=== PATIENT | female | born 1940 | race Caucasian/White ===

== ENCOUNTER → 2017-07-17 | Outpatient (CLI) | payer MEDICARE, OTHER ==
[~2017-07-17] MED LIST: ALEN70; ASCO1ER PO; ASPI81CH PO; ASPI81EC PO; CALCIUM PO; CRANBERRY TABS PO; ESTR25VT PV; HYDCHL25 PO; LAVAP17G PO; LISI5 PO; METH1TAB8; MULVITA PO; OMEGA FISH OIL PO; RESVERATROL PO; VAGIFEM10 MCG; VESICARE PO; VITAMIN D3 PO; Vitamin C100 M1 PO
== END | disposition home or self-care (01) ==
LOC: LAB SHORT 08:08 → PLD 08:08
DX: L82.1 Other seborrheic keratosis (principal)
CPT/HCPCS: 88305

== ENCOUNTER → 2018-07-18 | Outpatient (CLI) | payer MEDICARE, OTHER | END | disposition home or self-care (01) | LOC: LAB EV 12:45 → LAB SHORT 12:45 | DX: J02.9 Acute pharyngitis, unspecified (principal) | CPT/HCPCS: 87070 ==

== ENCOUNTER → 2018-07-28 | Outpatient (CLI) | payer MEDICARE, OTHER | END | disposition home or self-care (01) | LOC: LAB SHORT 12:40 → LAB EV 12:40 | DX: R31.9 Hematuria, unspecified (principal) | CPT/HCPCS: 87077; 87086; 87186 ==

== ENCOUNTER → 2018-11-19 | Outpatient (CLI) | payer MEDICARE, OTHER ==
[2018-11-19 19:36] LABS: Source, Urine Catheter
[2018-11-19 19:48] LABS: Bilirubin, Urine Neg (Neg); Blood, Urine 2+ (Neg); Glucose Qualitative, Urine Neg (Neg); Ketones, Urine Neg (Neg); Leukocyte Esterase, Urine 3+ (Neg); Nitrite, Urine Neg (Neg); Protein, Urine 1+ (Neg); Urobilinogen, Urine NORM (Normal)
[2018-11-19 20:12] LABS: Appearance, Urine Cloudy (Clear); Color, Urine Yellow (P-Yellow)
[2018-11-19 20:13] LABS: Bacteria Many /hpf; Red Blood Cells, Urine 0-2 /hpf (0-2); Squamous Epithelial Cells Not Seen /hpf (Few); White Blood Cells, Urine TNTC /hpf (0-5)
== END | disposition home or self-care (01) ==
LOC: LAB 16:48 → LAB SHORT 16:48
PROVIDERS: Obstetrics & Gynecology Gynecology
DX: R30.0 Dysuria (principal)
CPT/HCPCS: 81001; 87086

== ENCOUNTER → 2019-05-08 | Outpatient (CLI) | payer MEDICARE, OTHER | END | disposition home or self-care (01) | LOC: LAB SHORT 10:39 → LAB EV 10:39 | DX: N39.0 Urinary tract infection, site not specified (principal) | CPT/HCPCS: 87077; 87086; 87186 ==

== ENCOUNTER → 2021-04-18 | Outpatient (CLI) | payer MEDICARE, OTHER | END | disposition home or self-care (01) | LOC: LAB 18:40 → LAB SHORT 18:40 | DX: N39.0 Urinary tract infection, site not specified (principal) | CPT/HCPCS: 87086 ==

== ENCOUNTER 2021-07-10 08:13 | Day surgery (SDC) | payer MEDICARE, BC ==
[~2021-07-10] VITALS: Ht 170.2 cm; Wt 72.4 kg
[2021-07-10] MEDS ORDERED: LOSA25 (08:30)
[2021-07-10] MEDS ORDERED: HYDCHL12.5 (08:30)
[2021-07-10] MEDS ORDERED: AMLO5 (08:30)
[2021-07-10] MEDS ORDERED: GLUC500 (08:31)
[2021-07-10] MEDS ORDERED: MULVITA (08:31)
[2021-07-10] MEDS ORDERED: ZEBUTAL 50-3251 EAC1 (08:31)
== END 2021-07-10 10:46 | disposition home or self-care (01) ==
LOC: ORSCSDS 08:13
PROVIDERS: Internal Medicine Gastroenterology
PROC: 0DBM8ZX Excision of Descending Colon, Via Natural or Artificial Opening Endoscopic, Diagnostic (ICD-10-PCS; principal; 2021-07-10 09:30)
PROC: 0DBK8ZX Excision of Ascending Colon, Via Natural or Artificial Opening Endoscopic, Diagnostic (ICD-10-PCS; principal; 2021-07-10 09:30)
DX: Z12.11 Encounter for screening for malignant neoplasm of colon (principal); Z86.010 Personal history of colon polyps; D12.4 Benign neoplasm of descending colon; D12.2 Benign neoplasm of ascending colon; K57.30 Diverticulosis of large intestine without perforation or abscess without bleeding; K64.8 Other hemorrhoids; I10 Essential (primary) hypertension; Z79.899 Other long term (current) drug therapy
CPT/HCPCS: 88305; J2704; J7120

== ENCOUNTER 2022-02-12 08:24 | Day surgery (SDC) | payer MEDICARE, BC ==
[~2022-02-12] VITALS: Ht 170.2 cm; Wt 74.9 kg
[~2022-02-12 08:24] MED LIST changes: +ACIDOPHILUS1 EAC3 PO; +AMLO5 PO; +Acetaminophen650 M1 PO; +CELE100 PO; +D-MANNOSE PO; +FLAX PO; +GLUC500 PO; +HIPREX1 G1 PO; +HYDCHL12.5 PO; -LAVAP17G PO; +LOSA25 PO; +MELO7.5 PO; -METH1TAB8; +MIRALAX17 GM PO; +SODIUM HYALURONATE; -VAGIFEM10 MCG; +VAGIFEM10 MCG VAG; +ZEBUTAL 50-3251 EAC1
--- NOTE | 2022-02-12 10:09 | NUR ---
Ambulatory in Day Surgery WITH FAMILY. History, Chart, Medications and Allergies reviewed before start of procedure.Lungs clear T/O to Auscultation. Patient confirms NPO status and agrees with scheduled surgery. Pre-Op teaching done. Pt verbalizes understanding.
--- NOTE | 2022-02-12 15:00 | NUR ---
PT ARRIVED TO THE ROOM AT 1445. PT ALERT AND ORIENTED AT TIME OF ARRIVAL. SHE WAS ABLE TO WIGGLE HER TOES AND HAD RETURNING SENSATION TO BLE. AQUACELL DRESSING IN PLACE TO L KNEE, C/D/I. PT DENIES PAIN. WILL CONTINUE TO MONITOR.
--- NOTE | 2022-02-12 20:30 | NUR ---
SHIFT SUMMARY PT IS POD#1 FROM L TKA WITH DR. LEE. PAIN MANAGED WITH PO PAIN MEDICATION. PT HAS HAD SOME NAUSEA, MANAGED WITH REGLAN AND ZOFRAN. SHE WAS ABLE TO TOLERATE SOME DINNER. REPORT GIVEN TO ALLIE MURPHY.
--- NOTE | 2022-02-13 04:18 | NUR ---
POD1 FOR A LEFT TKA. DRESSING REMAINS C/D/I. SPINAL ANESTHESIA HAS WORN OFF, SENSATION AND CIRCULATION REMAINS IN TACT IN LLE. VSS. PT WAS NAUSEOUS AT THE BEGINNING OF SHIFT, MEDICATED PER EMAR. ONE EMESIS NOTED, PT STATED SHE FELT BETTER AFTERWARDS. TOLLERATED PO FLUID T/O THE NIGHT. DENIES PASSING GAS. VOIDING W/O DIFFICULTY. PT WAS ABLE TO AMBULATE TO THE BATHROOM WITH MINIMAL ASSISTANCE, GT BELT, AND WALKER FROM HOME. MEDICATED FOR PAIN WITH OXY, AND SCHEDULED MEDICATIONS. CRYO REMAINED IN PLACE T/O THE NIGHT. PT IS CURRENTLY RESTING, EATING JELLO. CALL LIGHT IN REACH
[2022-02-13 05:40] LABS: BASOPHILS ABSOLUTE AUTO 0.02 K/mm3 (0.00-0.23); BASOPHILS PERCENT AUTO 0 % (0-2); EOSINOPHILS PERCENT AUTO 0 % (0-6); Hemoglobin 10.2 g/dL (11.5-16.0); IMMATURE GRAN ABSOLUTE AUTO 0.03 K/mm3 (0.00-0.10); IMMATURE GRAN PERCENT AUTO 0 % (0-1); LYMPHOCYTES ABSOLUTE AUTO 0.73 K/mm3 (0.84-5.20); LYMPHOCYTES PERCENT AUTO 8 % (21-46); MONOCYTES ABSOLUTE AUTO 1.03 K/mm3 (0.16-1.47); MONOCYTES PERCENT AUTO 11 % (4-13); Mean Corpuscular HGB 32.3 pg (26.0-34.0); Mean Corpuscular Volume 95 fL (80-100); Mean Platelet Volume 10.1 fL (9.1-12.4); NEUTROPHILS ABSOLUTE AUTO 7.79 K/mm3 (1.96-9.15); NEUTROPHILS PERCENT AUTO 81 % (41-73); Platelet Count 177 K/mm3 (150-400); RDW Coefficient Variation 11.9 % (11.7-14.2); RDW Standard Deviation 41.4 fL (35.1-46.3); Red Blood Cell Count 3.16 M/mm3 (3.80-5.20)
[2022-02-13 06:04] LABS: Magnesium, Blood 1.8 mg/dL (1.6-2.4)
[2022-02-13 06:05] LABS: Bun/Creatinine Ratio 39.4 (12.0-20.0); Calcium, Blood 8.6 mg/dL (8.5-10.1); Creatinine, Blood 0.69 mg/dL (0.40-1.00); Potassium, Blood 3.8 mmol/L (3.5-5.5)
[2022-02-13] MEDS ORDERED: OXAYDO5 M3 PO (11:05)
--- NOTE | 2022-02-13 13:50 | NUR ---
DISCHARGE SUMMARY PT A&OX4, VSS/RA, BERT PO, VOIDING, AMB SBA FWW, IV DC'D. LEFT FLOOR VIA WC WITH FORESTRY PATROLMAN TO GO HOME WITH DAUGHTER WITH ALL PERSONAL POSSESSIONS INCLUDING DC PACKET, 2 AQUACEL DRESSINGS, NARC SCRIPT READY AT [facility](DAUGHTER TOOK YESTERDAY). DC INS PROVIDED. PT REP UNDERSTANDING THOSE INSTRUCTIONS INCLUDING DRESSING CHANGES, FU WITH SURGEON, OUTPT PT.
== END 2022-02-13 13:09 | disposition home or self-care (01) ==
LOC: ORSCMMR 08:24 → ORD 11:00 → ORSCMMR 11:00 → ORD 11:30 → SURS 14:37 → ORSCMMR 02-13 13:09
PROVIDERS: Orthopaedic Surgery
PROC: 0SRD0JA Replacement of Left Knee Joint with Synthetic Substitute, Uncemented, Open Approach (ICD-10-PCS; principal; 2022-02-12 11:00)
PROC: 8E0Y0CZ Robotic Assisted Procedure of Lower Extremity, Open Approach (ICD-10-PCS; principal; 2022-02-12 11:00)
DX: M17.12 Unilateral primary osteoarthritis, left knee (principal); I10 Essential (primary) hypertension; Z79.899 Other long term (current) drug therapy
CPT/HCPCS: 27447; 20985; S2900; 36415; 73560-LT; 80048; 83735; 85025; 97110; 97161; 97530; A9270; C1776; J0171; J0690; J0735; J1100; J1885; J2250; J2405; J2704; J2765; J2795; J3010; J7120

== ENCOUNTER → 2023-05-28 | Outpatient (CLI) | payer MEDICARE, BC ==
[~2023-05-28] MED LIST changes: +OXAYDO5 M3 PO
[2023-05-28 15:50] LABS: BASOPHILS ABSOLUTE AUTO 0.05 K/mm3 (0.00-0.23); BASOPHILS PERCENT AUTO 1 % (0-2); EOSINOPHILS PERCENT AUTO 2 % (0-6); Hematocrit 35.2 % (33.0-51.0); IMMATURE GRAN ABSOLUTE AUTO 0.01 K/mm3 (0.00-0.10); IMMATURE GRAN PERCENT AUTO 0 % (0-1); LYMPHOCYTES ABSOLUTE AUTO 0.99 K/mm3 (0.84-5.20); LYMPHOCYTES PERCENT AUTO 22 % (21-46); MONOCYTES ABSOLUTE AUTO 0.41 K/mm3 (0.16-1.47); MONOCYTES PERCENT AUTO 9 % (4-13); Mean Corpuscular HGB 32.6 pg (26.0-34.0); Mean Corpuscular HGB Conc 34.1 g/dL (31.5-36.5); Mean Corpuscular Volume 96 fL (80-100); Mean Platelet Volume 9.2 fL (9.1-12.4); NEUTROPHILS ABSOLUTE AUTO 3.01 K/mm3 (1.96-9.15); NEUTROPHILS PERCENT AUTO 66 % (41-73); Platelet Count 176 K/mm3 (150-400); RDW Coefficient Variation 11.8 % (11.7-14.2); RDW Standard Deviation 40.7 fL (35.1-46.3); Red Blood Cell Count 3.68 M/mm3 (3.80-5.20); White Blood Cell Count 4.57 K/mm3 (4.00-11.30)
[2023-05-28 16:01] LABS: Albumin, Blood 3.7 g/dL (3.4-5.0); Albumin/Globulin Ratio 1.2 (0.8-1.8); Bilirubin, Total 0.4 mg/dL (0.1-1.0); Bun/Creatinine Ratio 31.5 (12.0-20.0); Calcium, Blood 8.7 mg/dL (8.5-10.1); Creatinine, Blood 0.92 mg/dL (0.40-1.00); Globulin, Blood 3.2 g/dL (2.2-4.0); Potassium, Blood 3.6 mmol/L (3.5-5.5); Total Protein, Blood 6.9 g/dL (6.4-8.2)
== END | disposition home or self-care (01) ==
LOC: LAB SHORT 15:45 → LAB 15:45
PROVIDERS: Physician Assistant
DX: R94.4 Abnormal results of kidney function studies (principal)
CPT/HCPCS: 80053; 85025

== ENCOUNTER → 2024-06-12 | Outpatient (CLI) | payer MEDICARE, BC | LOC: LAB 13:42 → LAB SHORT 13:42 | DX: N39.0 Urinary tract infection, site not specified (principal) | CPT/HCPCS: 87077; 87086; 87186 ==

== ENCOUNTER → 2024-07-04 | Outpatient (CLI) | payer MEDICARE, BC | LOC: LAB 15:02 → LAB SHORT 15:02 | DX: N39.0 Urinary tract infection, site not specified (principal) | CPT/HCPCS: 87077; 87086; 87186 ==